=== PATIENT | female | born 1945 | race American Indian/Alaskan Native ===

== ENCOUNTER 2017-11-11 04:43 | Emergency (ER) | payer MEDICARE, MEDICAID ==
[~2017-11-11] VITALS: Ht 162.6 cm; Wt 45.0 kg
[~2017-11-11 04:43] MED LIST: ALB0.5UD IH; ALBU8.5H8 IH; BUSP15TA3 PO; PRED50TA PO
[2017-11-11] MEDS ORDERED: HYDROCODONE-ACETAMIN 5-325 MG (04:55)
[2017-11-11] MEDS ORDERED: VENTOLIN HFA 90 MCG INHALER (04:55)
[2017-11-11] MEDS ORDERED: BUSPIRONE HCL 15 MG TABLET (04:55)
[2017-11-11] MEDS ORDERED: methylPREDNISolone sod succ 125mg/2ml vial IV ONE (05:35)
[2017-11-11] MEDS ORDERED: levoFLOXACIN 750MG TABLET PO ONE (05:35)
[2017-11-11] MEDS ORDERED: triamcinolone acetonide 40mg/ml inj IM ONE (05:35)
[2017-11-11] MEDS ORDERED: LEVO750T21 PO (05:36)
[2017-11-11 06:33] VITALS: BP 100/68
== END 2017-11-11 07:58 | disposition home or self-care (01) ==
LOC: ER 04:44
DX: J44.1 Chronic obstructive pulmonary disease with (acute) exacerbation (principal); I10 Essential (primary) hypertension; Z86.73 Personal history of transient ischemic attack (TIA), and cerebral infarction without residual deficits; Z90.49 Acquired absence of other specified parts of digestive tract; Z90.710 Acquired absence of both cervix and uterus; Z88.5 Allergy status to narcotic agent
CPT/HCPCS: 93005; 96372; 96374; 99284; J2930; J3301

== ENCOUNTER 2017-11-26 07:06 | Emergency (ER) | payer MEDICARE, MEDICAID ==
[~2017-11-26] VITALS: Ht 162.6 cm; Wt 45.0 kg
[~2017-11-26 07:06] MED LIST changes: +BUSPIRONE HCL 15 MG TABLET; +HYDROCODONE-ACETAMIN 5-325 MG; +PRED20TA PO; +VENTOLIN HFA 90 MCG INHALER
[2017-11-26] MEDS ORDERED: ipratropium/albuterol 3ml nebule NEB ONE (07:20)
[2017-11-26 07:38] LABS: BASOPHILS # (AUTO) 0.1 X10'3 (0-0.2); BASOPHILS % (AUTO) 1.5 % (0-1); EOSINOPHILS # (AUTO) 0.5 X10'3 (0-0.9); EOSINOPHILS % (AUTO) 6.4 % (0-6); HEMATOCRIT 37.7 % (35.0-45.0); HEMOGLOBIN 12.7 g/dl (12.0-16.0); LYMPHOCYTES # (AUTO) 1.1 X10'3 (1.1-4.8); LYMPHOCYTES % (AUTO) 12.6 % (21-51); MEAN CORPUSCULAR HEMOGLOBIN 31.5 PG (27.0-31.0); MEAN CORPUSCULAR HGB CONC 33.6 % (33.0-36.5); MEAN CORPUSCULAR VOLUME 93.6 FL (78-98); MEAN PLATELET VOLUME 8.1 FL (7.4-10.4); MONOCYTES # (AUTO) 0.4 X10'3 (0-0.9); NEUTROPHILS # (AUTO) 6.3 X10'3 (1.8-7.7); NEUTROPHILS % (AUTO) 74.5 % (42-75); PLATELET COUNT 292 X10'3 (140-440); RED BLOOD COUNT 4.03 X10'6 (4.20-5.60); RED CELL DISTRIBUTION WIDTH 12.3 % (11.5-14.5); WHITE BLOOD COUNT 8.4 X10'3 (4.5-11.0)
[2017-11-26 07:40] LABS: INR 0.9 INR; PARTIAL THROMBOPLASTIN TIME 29 SECONDS (22-32)
[2017-11-26 07:51] LABS: ALANINE AMINOTRANSFERASE 31 U/L (12-78); ALBUMIN 3.6 G/DL (3.4-5.0); ALKALINE PHOSPHATASE 65 IU/L (46-116); ANION GAP 7 (8-16); ASPARTATE AMINO TRANSFERASE 22 U/L (10-37); BILIRUBIN,TOTAL 0.3 MG/DL (0.1-1.0); BLOOD UREA NITROGEN 16 MG/DL (7-18); CALCIUM 9.1 MG/DL (8.5-10.1); CHLORIDE 101 MMOL/L (99-107); GLUCOSE 98 MG/DL (70-104); POTASSIUM 4.4 MMOL/L (3.5-5.1); SODIUM 139 MMOL/L (135-145); TOTAL CARBON DIOXIDE 30.8 MMOL/L (24-32); TOTAL PROTEIN 7.2 G/DL (6.4-8.2); eGFR 71 ML/MIN
[2017-11-26] MEDS ORDERED: ALB0.5UD IH (09:01)
[2017-11-26] MEDS ORDERED: LORazepam 0.5 MG tablet PO PRN (09:15)
[2017-11-26 11:13] VITALS: BP 134/65
== END 2017-11-26 11:15 | disposition home or self-care (01) ==
LOC: ER 07:07
DX: J44.1 Chronic obstructive pulmonary disease with (acute) exacerbation (principal); I11.0 Hypertensive heart disease with heart failure; I50.9 Heart failure, unspecified; Z90.710 Acquired absence of both cervix and uterus; Z90.49 Acquired absence of other specified parts of digestive tract; Z86.73 Personal history of transient ischemic attack (TIA), and cerebral infarction without residual deficits; Z88.5 Allergy status to narcotic agent
CPT/HCPCS: 36415; 71045; 80053; 83880; 84484; 85025; 85610; 85730; 93005; 94640; 94760; 99285

== ENCOUNTER 2018-04-26 09:30 | Emergency (ER) | payer MEDICARE, MEDICAID ==
[~2018-04-26] VITALS: Ht 162.6 cm; Wt 47.7 kg
[~2018-04-26 09:30] MED LIST changes: +PRED10TA PO; -PRED20TA PO
[2018-04-26] MEDS ORDERED: albuterol 2.5 MG/3 ML nebule NEB ONE ×2 (09:35→10:40)
[2018-04-26] MEDS ORDERED: methylPREDNISolone sod succ 125mg/2ml vial IV ONE (09:35)
[2018-04-26] MEDS ORDERED: normal saline 1000ML IV soln IVB ONE (09:35)
[2018-04-26] MEDS ORDERED: ipratropium/albuterol 3ml nebule NEB ONE (09:35)
[2018-04-26 09:58] LABS: BASOPHILS # (AUTO) 0.1 X10'3 (0-0.2); BASOPHILS % (AUTO) 1.5 % (0-1); EOSINOPHILS # (AUTO) 0.4 X10'3 (0-0.9); EOSINOPHILS % (AUTO) 6.1 % (0-6); HEMATOCRIT 36.5 % (35.0-45.0); HEMOGLOBIN 12.6 g/dl (12.0-16.0); LYMPHOCYTES # (AUTO) 1.7 X10'3 (1.1-4.8); LYMPHOCYTES % (AUTO) 25.1 % (21-51); MEAN CORPUSCULAR HEMOGLOBIN 31.9 PG (27.0-31.0); MEAN CORPUSCULAR HGB CONC 34.4 % (33.0-36.5); MEAN CORPUSCULAR VOLUME 92.7 FL (78-98); MEAN PLATELET VOLUME 7.8 FL (7.4-10.4); MONOCYTES # (AUTO) 0.5 X10'3 (0-0.9); NEUTROPHILS # (AUTO) 4.1 X10'3 (1.8-7.7); NEUTROPHILS % (AUTO) 60.3 % (42-75); PLATELET COUNT 285 X10'3 (140-440); RED BLOOD COUNT 3.94 X10'6 (4.20-5.60); RED CELL DISTRIBUTION WIDTH 13.2 % (11.5-14.5); WHITE BLOOD COUNT 6.8 X10'3 (4.5-11.0)
[2018-04-26 10:04] LABS: INR 0.9 INR; PARTIAL THROMBOPLASTIN TIME 28 SECONDS (22-32); PROTHROMBIN TIME 9.3 SECONDS (9.0-12.0)
[2018-04-26 10:11] LABS: ALANINE AMINOTRANSFERASE 22 U/L (12-78); ALBUMIN 3.7 G/DL (3.4-5.0); ALBUMIN/GLOBULIN RATIO 1.1 (1.1-1.5); ALKALINE PHOSPHATASE 72 IU/L (46-116); ANION GAP 7 (8-16); ASPARTATE AMINO TRANSFERASE 16 U/L (10-37); BILIRUBIN,TOTAL 0.2 MG/DL (0.1-1.0); BLOOD UREA NITROGEN 15 MG/DL (7-18); CALCIUM 8.9 MG/DL (8.5-10.1); CHLORIDE 102 MMOL/L (99-107); CREATININE 0.88 MG/DL (0.40-0.90); GLUCOSE 117 MG/DL (70-104); SODIUM 138 MMOL/L (135-145); TOTAL CARBON DIOXIDE 29.2 MMOL/L (24-32); TOTAL PROTEIN 7.1 G/DL (6.4-8.2); eGFR 64 ML/MIN
[2018-04-26] MEDS ORDERED: albuterol 2.5 MG/3 ML nebule ONE (10:11)
[2018-04-26 10:17] LABS: MAGNESIUM 1.7 MG/DL (1.5-2.4)
[2018-04-26] MEDS ORDERED: HYDROcodone/acetaminophen 10/325mg tab PO ONE (10:40)
[2018-04-26] MEDS ORDERED: AZIT250T2 PO (11:02)
[2018-04-26] MEDS ORDERED: PRED20TA PO (11:02)
[2018-04-26 12:35] VITALS: BP 111/53
== END 2018-04-26 12:36 | disposition home or self-care (01) ==
LOC: ER 09:30
DX: J44.1 Chronic obstructive pulmonary disease with (acute) exacerbation (principal); I50.9 Heart failure, unspecified; I11.0 Hypertensive heart disease with heart failure; Z90.49 Acquired absence of other specified parts of digestive tract; Z90.710 Acquired absence of both cervix and uterus; Z88.5 Allergy status to narcotic agent; Z79.2 Long term (current) use of antibiotics; Z79.899 Other long term (current) drug therapy
CPT/HCPCS: 36415; 71045; 80053; 83735; 83880; 85025; 85610; 85730; 93005; 94640; 94760; 96374; 99285; J2930; J7030

== ENCOUNTER 2018-05-03 16:45 | Emergency (ER) | payer MEDICARE, MEDICAID ==
[~2018-05-03] VITALS: Ht 162.6 cm; Wt 55.0 kg
[2018-05-03] MEDS ORDERED: ondansetron/PF 4mg/2ml inj IV ONE (17:15)
[2018-05-03] MEDS ORDERED: fentaNYL/PF 50MCG/1 ML 2ML syringe IV ONE (17:15)
[2018-05-03] MEDS ORDERED: HYDROcodone/acetaminophen 10/325mg tab PO ONE (17:35)
[2018-05-03] MEDS ORDERED: morphine 4 MG/ML inj SYRINge IV ONE (17:35)
[2018-05-03] MEDS ORDERED: bupivacaine (with preservative) 5 mg/ml inj. 50ml SQ ONE (17:50)
[2018-05-03] MEDS ORDERED: HYDR-3965 PO (18:28)
[2018-05-03 18:53] VITALS: BP 152/88
== END 2018-05-03 18:55 | disposition home or self-care (01) ==
LOC: ER 16:46
DX: S42.201A Unspecified fracture of upper end of right humerus, initial encounter for closed fracture (principal); I50.9 Heart failure, unspecified; I11.0 Hypertensive heart disease with heart failure; J44.9 Chronic obstructive pulmonary disease, unspecified; Z90.49 Acquired absence of other specified parts of digestive tract; Z90.710 Acquired absence of both cervix and uterus; Z88.5 Allergy status to narcotic agent; Z79.899 Other long term (current) drug therapy; W01.0XXA Fall on same level from slipping, tripping and stumbling without subsequent striking against object, initial encounter; Y93.89 Activity, other specified; Y92.89 Other specified places as the place of occurrence of the external cause; Y99.8 Other external cause status
CPT/HCPCS: 73030; 96374; 96375; 99284; J2270; J2405; J3010

== ENCOUNTER 2018-05-07 06:19 | Emergency (ER) | payer MEDICARE, MEDICAID ==
[~2018-05-07] VITALS: Ht 157.5 cm; Wt 45.0 kg
[~2018-05-07 06:19] MED LIST changes: +HYDR-3965 PO
[2018-05-07 06:52] LABS: BASOPHILS % (AUTO) 0.2 % (0-1); EOSINOPHILS # (AUTO) 0.3 X10'3 (0-0.9); EOSINOPHILS % (AUTO) 2.9 % (0-6); HEMATOCRIT 35.1 % (35.0-45.0); HEMOGLOBIN 11.9 g/dl (12.0-16.0); LYMPHOCYTES # (AUTO) 1.5 X10'3 (1.1-4.8); LYMPHOCYTES % (AUTO) 14.1 % (21-51); MEAN CORPUSCULAR HEMOGLOBIN 31.4 PG (27.0-31.0); MEAN CORPUSCULAR VOLUME 92.4 FL (78-98); MEAN PLATELET VOLUME 7.8 FL (7.4-10.4); MONOCYTES # (AUTO) 0.5 X10'3 (0-0.9); MONOCYTES % (AUTO) 4.9 % (2-12); NEUTROPHILS # (AUTO) 8.1 X10'3 (1.8-7.7); NEUTROPHILS % (AUTO) 77.9 % (42-75); PLATELET COUNT 245 X10'3 (140-440); RED BLOOD COUNT 3.79 X10'6 (4.20-5.60); RED CELL DISTRIBUTION WIDTH 13.5 % (11.5-14.5); WHITE BLOOD COUNT 10.4 X10'3 (4.5-11.0)
[2018-05-07] MEDS ORDERED: HYDROmorphone 2mg tablet PO ONE (07:00)
[2018-05-07] MEDS ORDERED: naproxen 500mg tablet PO ONE (07:00)
[2018-05-07] MEDS ORDERED: methylPREDNISolone sod succ 125mg/2ml vial IV ONE (07:00)
[2018-05-07] MEDS ORDERED: HYDR-569 PO (07:00)
[2018-05-07] MEDS ORDERED: PRED20TA PO (07:00)
[2018-05-07] MEDS ORDERED: NAPR-56 PO (07:00)
[2018-05-07 07:12] LABS: ALANINE AMINOTRANSFERASE 113 U/L (12-78); ALBUMIN 3.6 G/DL (3.4-5.0); ALKALINE PHOSPHATASE 90 IU/L (46-116); ANION GAP 10 (8-16); ASPARTATE AMINO TRANSFERASE 24 U/L (10-37); BILIRUBIN,TOTAL 0.3 MG/DL (0.1-1.0); BLOOD UREA NITROGEN 21 MG/DL (7-18); BUN/CREATININE RATIO 22.6 (6.6-38.0); CALCIUM 8.7 MG/DL (8.5-10.1); CHLORIDE 98 MMOL/L (99-107); CREATININE 0.93 MG/DL (0.40-0.90); GLUCOSE 121 MG/DL (70-104); MAGNESIUM 2.2 MG/DL (1.5-2.4); POTASSIUM 4.4 MMOL/L (3.5-5.1); SODIUM 136 MMOL/L (135-145); TOTAL CARBON DIOXIDE 28.2 MMOL/L (24-32); TOTAL PROTEIN 7.2 G/DL (6.4-8.2); eGFR 60 ML/MIN
[2018-05-07 08:17] VITALS: BP 140/71
== END 2018-05-07 08:57 | disposition home or self-care (01) ==
LOC: ER 06:19
DX: J44.1 Chronic obstructive pulmonary disease with (acute) exacerbation (principal); F17.200 Nicotine dependence, unspecified, uncomplicated; M25.511 Pain in right shoulder; I11.0 Hypertensive heart disease with heart failure; I50.9 Heart failure, unspecified; J44.9 Chronic obstructive pulmonary disease, unspecified; Z90.49 Acquired absence of other specified parts of digestive tract; Z90.710 Acquired absence of both cervix and uterus; Z86.73 Personal history of transient ischemic attack (TIA), and cerebral infarction without residual deficits; Z88.5 Allergy status to narcotic agent; Z79.899 Other long term (current) drug therapy
CPT/HCPCS: 36415; 71045; 80053; 83735; 84484; 85025; 93005; 96374; 99285; 99406; J2930

== ENCOUNTER 2018-06-01 10:08 | Outpatient (CLI) | payer MEDICARE, MEDICAID ==
[2018-06-01 10:04] VITALS: BP 119/70
[~2018-06-01 10:08] MED LIST changes: +HYDR-569 PO; +NAPR-56 PO
[2018-06-03] MEDS ORDERED: PRED20TA PO (08:09)
[2018-06-03] MEDS ORDERED: LORA0.5T PO (08:09)
== END 2018-06-01 10:47 | disposition home or self-care (01) ==
LOC: ORTHO 10:08
PROVIDERS: ATTEND Nurse Practitioner Family
DX: S42.201D Unspecified fracture of upper end of right humerus, subsequent encounter for fracture with routine healing (principal); F17.210 Nicotine dependence, cigarettes, uncomplicated; I11.0 Hypertensive heart disease with heart failure; I50.9 Heart failure, unspecified; J44.9 Chronic obstructive pulmonary disease, unspecified; F10.10 Alcohol abuse, uncomplicated; Z88.5 Allergy status to narcotic agent; W18.39XD Other fall on same level, subsequent encounter
CPT/HCPCS: 73030; 99213

== ENCOUNTER 2018-06-21 15:12 | Outpatient (CLI) | payer MEDICARE, MEDICAID ==
[2018-06-21 15:11] VITALS: BP 158/81
[~2018-06-21 15:12] MED LIST changes: -HYDR-3965 PO; +LORA0.5T PO; -NAPR-56 PO; +PRED20TA PO
== END 2018-06-21 15:47 | disposition home or self-care (01) ==
LOC: ORTHO 15:12
PROVIDERS: ATTEND Nurse Practitioner Family
DX: S42.201D Unspecified fracture of upper end of right humerus, subsequent encounter for fracture with routine healing (principal); I11.0 Hypertensive heart disease with heart failure; I50.9 Heart failure, unspecified; J44.9 Chronic obstructive pulmonary disease, unspecified; F17.210 Nicotine dependence, cigarettes, uncomplicated; F10.10 Alcohol abuse, uncomplicated; Z86.73 Personal history of transient ischemic attack (TIA), and cerebral infarction without residual deficits; Z88.5 Allergy status to narcotic agent; W19.XXXD Unspecified fall, subsequent encounter; Z90.710 Acquired absence of both cervix and uterus
CPT/HCPCS: 73030; 99213

== ENCOUNTER 2018-07-13 15:13 | Outpatient (CLI) | payer MEDICARE, MEDICAID ==
[2018-07-13 15:11] VITALS: BP 162/83
[~2018-07-13 15:13] MED LIST changes: -LORA0.5T PO; -PRED20TA PO
== END 2018-07-13 15:37 | disposition home or self-care (01) ==
LOC: ORTHO 15:13
PROVIDERS: ATTEND Nurse Practitioner Family
DX: S42.201D Unspecified fracture of upper end of right humerus, subsequent encounter for fracture with routine healing (principal); M85.88 Other specified disorders of bone density and structure, other site; F17.210 Nicotine dependence, cigarettes, uncomplicated; I11.0 Hypertensive heart disease with heart failure; I50.9 Heart failure, unspecified; J44.9 Chronic obstructive pulmonary disease, unspecified; Z86.73 Personal history of transient ischemic attack (TIA), and cerebral infarction without residual deficits; Z88.5 Allergy status to narcotic agent; Z90.710 Acquired absence of both cervix and uterus; Z72.89 Other problems related to lifestyle; W18.39XD Other fall on same level, subsequent encounter
CPT/HCPCS: 73030; 99213

== ENCOUNTER 2018-12-06 11:38 | Emergency (ER) | payer MEDICARE, MEDICAID ==
[~2018-12-06] VITALS: Ht 162.6 cm; Wt 60.9 kg
[~2018-12-06 11:38] MED LIST changes: +HYDR-4383 PO; -HYDR-569 PO
[2018-12-06 11:41] VITALS: BP 136/64
[2018-12-06] MEDS ORDERED: ipratropium/albuterol 3ml nebule NEB ONE (15:50)
--- NOTE | 2018-12-06 16:46 | NUR ---
Patient received RT treatment and discharge. Patient reported that power was back on and that she could get home and continue her normal 4 L via [place]. Patient discharge with family and all belongings.
== END 2018-12-06 16:47 | disposition home or self-care (01) ==
LOC: ER 11:39
DX: J44.1 Chronic obstructive pulmonary disease with (acute) exacerbation (principal); I11.0 Hypertensive heart disease with heart failure; I50.9 Heart failure, unspecified; Z86.73 Personal history of transient ischemic attack (TIA), and cerebral infarction without residual deficits; Z90.49 Acquired absence of other specified parts of digestive tract; Z90.710 Acquired absence of both cervix and uterus; Z88.5 Allergy status to narcotic agent; Z79.899 Other long term (current) drug therapy; Z99.81 Dependence on supplemental oxygen
CPT/HCPCS: 94640; 94760; 99284

== ENCOUNTER 2018-12-23 17:58 | Emergency (ER) | payer MEDICARE, MEDICAID ==
[~2018-12-23] VITALS: Ht 162.6 cm; Wt 61.4 kg
[2018-12-23] MEDS ORDERED: methylPREDNISolone sod succ 125mg/2ml vial IV ONE (18:45)
[2018-12-23] MEDS ORDERED: albuterol 2.5 MG/3 ML nebule NEB ONE (18:45)
[2018-12-23 19:10] LABS: BASOPHILS # (AUTO) 0.1 X10'3 (0-0.2); BASOPHILS % (AUTO) 0.9 % (0-1); EOSINOPHILS # (AUTO) 0.7 X10'3 (0-0.9); EOSINOPHILS % (AUTO) 7.9 % (0-6); HEMATOCRIT 35.7 % (35.0-45.0); LYMPHOCYTES # (AUTO) 1.5 X10'3 (1.1-4.8); LYMPHOCYTES % (AUTO) 17.5 % (21-51); MEAN CORPUSCULAR HEMOGLOBIN 30.5 PG (27.0-31.0); MEAN CORPUSCULAR HGB CONC 33.7 g/dL (33.0-36.5); MEAN CORPUSCULAR VOLUME 90.4 FL (78-98); MEAN PLATELET VOLUME 8.8 FL (7.4-10.4); MONOCYTES # (AUTO) 0.7 X10'3 (0-0.9); MONOCYTES % (AUTO) 7.7 % (2-12); NEUTROPHILS # (AUTO) 5.6 X10'3 (1.8-7.7); PLATELET COUNT 280 X10'3 (140-440); RED BLOOD COUNT 3.95 X10'6 (4.20-5.60); RED CELL DISTRIBUTION WIDTH 13.1 % (11.5-14.5); WHITE BLOOD COUNT 8.5 X10'3 (4.5-11.0)
[2018-12-23 19:19] LABS: ALANINE AMINOTRANSFERASE 23 U/L (12-78); ALKALINE PHOSPHATASE 92 IU/L (46-116); ANION GAP 4 (8-16); ASPARTATE AMINO TRANSFERASE 18 U/L (10-37); BILIRUBIN,TOTAL 0.2 MG/DL (0.1-1.0); BLOOD UREA NITROGEN 15 MG/DL (7-18); BUN/CREATININE RATIO 19.5 (6.6-38.0); CALCIUM 9.4 MG/DL (8.5-10.1); CHLORIDE 99 MMOL/L (99-107); CREATININE 0.77 MG/DL (0.40-0.90); GLUCOSE 112 MG/DL (70-104); SODIUM 135 MMOL/L (135-145); TOTAL CARBON DIOXIDE 31.8 MMOL/L (24-32); TOTAL PROTEIN 7.9 G/DL (6.4-8.2); eGFR 74 ML/MIN
[2018-12-23 19:20] LABS: INR 0.9 INR; PARTIAL THROMBOPLASTIN TIME 33 SECONDS (22-32); PROTHROMBIN TIME 9.5 SECONDS (9.0-12.0)
[2018-12-23] MEDS ORDERED: BUDE0.5A11 NEB (20:36)
[2018-12-23] MEDS ORDERED: PRED10TA PO (20:36)
[2018-12-23 20:52] VITALS: BP 142/70
== END 2018-12-23 20:55 | disposition home or self-care (01) ==
LOC: ER 17:59
DX: J44.1 Chronic obstructive pulmonary disease with (acute) exacerbation (principal); I11.0 Hypertensive heart disease with heart failure; I50.9 Heart failure, unspecified; Z88.6 Allergy status to analgesic agent; Z79.899 Other long term (current) drug therapy; Z86.73 Personal history of transient ischemic attack (TIA), and cerebral infarction without residual deficits; Z90.49 Acquired absence of other specified parts of digestive tract; Z90.710 Acquired absence of both cervix and uterus; Z87.891 Personal history of nicotine dependence
CPT/HCPCS: 36415; 71045; 80053; 84484; 85025; 85610; 85730; 93005; 94640; 94760; 96374; 99284; J2930